=== PATIENT | male | born 1960 | race Caucasian/White ===

== ENCOUNTER 2016-06-08 17:06 | Inpatient (IN) ==
[2016-06-08] MEDS ORDERED: ONDANSETRON 4 MG/2 ML VIAL IV STA ×2 (17:18→19:14)
[2016-06-08] MEDS ORDERED: HYDROmorphone 2 MG/1 ML VIAL IV STA ×2 (17:18→19:14)
[2016-06-08] MEDS ORDERED: HYDROmorphone 2 MG/1 ML VIAL ONE ×2 (17:18→19:25)
[2016-06-08] MEDS ORDERED: ONDANSETRON 4 MG/2 ML VIAL ONE ×2 (17:18→19:24)
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
[2016-06-08 19:18] LABS: Basophils # 0.1 10*3/uL (0.0-0.2); Basophils % 0.4 % (0.0-0.8); Eosinophils # 0.2 10*3/uL (0.0-0.87); Eosinophils % 1.3 % (0.00-10.9); Hematocrit 43.9 VOL% (42.0-52.0); Hemoglobin 15.3 GM/DL (14.0-18.0); Immature Granulocytes % 0.7 %; Lymphocytes # 0.9 10*3/uL (1.4-4.0); Mean Corpuscular HGB Conc 34.9 GM/DL (32-36); Mean Corpuscular Hemoglobin 32 PG (27-34); Mean Corpuscular Volume 91.5 FL (87-102); Mean Platelet Volume 9.9 FL (9.6-12.0); Monocytes # 0.8 10*3/uL (0.11-0.8); Monocytes % 5.1 % (1.7-12.7); Neutrophils % 86.5 % (38.7-73.9); Platelet Count 218 T/CUMM (130-400); Red Cell Distribution Width 12.5 % (9.3-17.3); White Blood Count 15.1 T/CUMM (4-12)
[2016-06-08 19:30] LABS: PT Patient Result 10.7 SECS; Partial Thromboplastin Time 23.1 SECS (0-40)
[2016-06-08 19:31] LABS: Alanine Aminotransferase 71 U/L (16-61); Albumin 3.6 G/DL (3.4-5.0); Alkaline Phosphatase 84 U/L (45-117); Amylase 42 U/L (25-115); Aspartate Amino Transferase 81 U/L (0-37); Blood Urea Nitrogen 17 MG/DL (7-18); Calcium 8.3 MG/DL (8.5-10.1); Glucose 163 MG/DL (74-106); Osmolality,Calculated 282.5 MOS/KG (273-304); Sodium 139 MMOL/L (136-145); Total Protein 6.4 G/DL (6.4-8.3)
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
[2016-06-08] MEDS ORDERED: ONDANSETRON 4 MG/2 ML VIAL IV PRN (19:56)
[2016-06-08] MEDS ORDERED: HYDROmorphone 2 MG/1 ML VIAL IV PRN (19:56)
[2016-06-08] MEDS ORDERED: cefTRIAXone 1,000 MG in SODIUM CHLORIDE 0.9% 100 ML IV SCH (20:00)
[2016-06-09] MEDS: ALBUTEROL/IPRATROPIUM 3 ML NEB RESP TX SCH ×4 (01:11→19:28)
[2016-06-09] MEDS: HYDROmorphone 2 MG/1 ML VIAL IV PRN ×3 (05:03→14:38)
--- NOTE | 2016-06-09 07:09 | XRay Report ---
Referring Physician: Karthikeyan Zapata Exam: XR chest 1V portable Date: June 09, 2016 at 3:33 AM Reason: Follow-up pneumothorax Comparison: Chest one view portable June 08, 2016, CT chest June 08, 2016 Findings: The cardiac silhouette is again mildly enlarged. There are minimal scattered opacities within the mid and lower lung zones bilaterally, mainly on the right. This likely represents atelectasis and possibly pulmonary contusion. There are multiple recent right rib fractures as well as a displaced fracture of the right scapula. No significant pneumothorax is identified. Impression: There is slight increased atelectasis within both lungs. No significant pneumothorax is identified. PROCEDURE INTERPRETED AT [facility] DEPARTMENT OF RADIOLOGY Final Report Signed by: Dr. Jerry Lawler
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
[2016-06-09 07:54] LABS: Basophils % 0.5 % (0.0-0.8); Eosinophils # 0.2 10*3/uL (0.0-0.87); Eosinophils % 3.1 % (0.00-10.9); Hematocrit 45.4 VOL% (42.0-52.0); Hemoglobin 15.1 GM/DL (14.0-18.0); Immature Granulocytes % 0.5 %; Immature Granulocytes Absolute 0.04 #; Lymphocytes # 1.4 10*3/uL (1.4-4.0); Lymphocytes % 18.2 % (21.2-54.2); Mean Corpuscular HGB Conc 33.3 GM/DL (32-36); Mean Corpuscular Hemoglobin 32 PG (27-34); Mean Corpuscular Volume 96.2 FL (87-102); Mean Platelet Volume 9.4 FL (9.6-12.0); Monocytes # 0.5 10*3/uL (0.11-0.8); Monocytes % 6.4 % (1.7-12.7); Neutrophils # 5.3 10*3/uL (1.4-7.4); Neutrophils % 71.3 % (38.7-73.9); Platelet Count 209 T/CUMM (130-400); Red Blood Count 4.72 MC/CUMM (3.8-5.5); Red Cell Distribution Width 12.7 % (9.3-17.3); White Blood Count 7.5 T/CUMM (4-12)
[2016-06-09] MEDS: KETOROLAC 30 MG/1 ML VIAL IV SCH ×3 (08:20→21:04)
[2016-06-09] MEDS: ENOXAPARIN 40 MG/0.4 ML SYRINGE SUBCUT SCH (08:21)
[2016-06-09] MEDS: PANTOPRAZOLE 40 MG VIAL IV SCH (08:21)
[2016-06-09 08:24] LABS: Albumin 3.7 G/DL (3.4-5.0); Bilirubin,Total 1.2 MG/DL (0.2-1.0); Calcium 8.6 MG/DL (8.5-10.1); Osmolality,Calculated 280.5 MOS/KG (273-304); Potassium 4.2 MMOL/L (3.5-5.1); Total Protein 6.8 G/DL (6.4-8.3)
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
[2016-06-10] MEDS: KETOROLAC 30 MG/1 ML VIAL IV SCH ×4 (00:29→18:35)
[2016-06-10] MEDS: ALBUTEROL/IPRATROPIUM 3 ML NEB RESP TX SCH ×4 (00:40→19:58)
[2016-06-10] MEDS: HYDROmorphone 2 MG/1 ML VIAL IV PRN ×4 (00:40→21:20)
[2016-06-10] MEDS: ENOXAPARIN 40 MG/0.4 ML SYRINGE SUBCUT SCH (09:10)
[2016-06-10] MEDS: PANTOPRAZOLE 40 MG VIAL IV SCH (09:10)
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
[2016-06-10] MEDS ORDERED: oxyCODONE/ACETAMINOPHEN 5-325 MG TABLET PO PRN (10:59)
[2016-06-11] MEDS: ALBUTEROL/IPRATROPIUM 3 ML NEB RESP TX SCH ×4 (00:32→19:19)
[2016-06-11] MEDS: KETOROLAC 30 MG/1 ML VIAL IV SCH ×4 (02:22→18:42)
[2016-06-11] MEDS: HYDROmorphone 2 MG/1 ML VIAL IV PRN ×2 (06:44→10:30)
--- NOTE | 2016-06-11 07:48 | Orthopedic Progress Note ---
Orthopedics - Subjective Interval history: Pain control better using sling discussed. Follow-up 4 weeks/ no pain in wrist Exam - Constitutional Vitals: Period Temp Pulse Resp BP Sys/Collier Pulse Ox Last 24 Hr 97.6 F-99.2 F 70-92 18-20 105-120/50-68 90-99 Results - Labs CBC & BMP: 06/09/16 07:36 06/09/16 07:36
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
[2016-06-11] MEDS: oxyCODONE/ACETAMINOPHEN 5-325 MG TABLET PO SCH ×4 (09:38→21:14)
[2016-06-11] MEDS: PANTOPRAZOLE 40 MG VIAL IV SCH (09:39)
[2016-06-11] MEDS: ENOXAPARIN 40 MG/0.4 ML SYRINGE SUBCUT SCH (09:39)
[2016-06-12] MEDS: ALBUTEROL/IPRATROPIUM 3 ML NEB RESP TX SCH ×3 (00:02→14:08)
[2016-06-12] MEDS: oxyCODONE/ACETAMINOPHEN 5-325 MG TABLET PO SCH ×5 (02:02→17:20)
[2016-06-12] MEDS: KETOROLAC 30 MG/1 ML VIAL IV SCH ×3 (02:02→15:56)
[2016-06-12] MEDS: PANTOPRAZOLE 40 MG VIAL IV SCH (10:04)
[2016-06-12] MEDS: ENOXAPARIN 40 MG/0.4 ML SYRINGE SUBCUT SCH (10:04)
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
[2016-06-12 15:44] VITALS: BP 113/59
== END 2016-06-12 18:05 | disposition home or self-care (01) | DRG 563 ==
LOC: EDBD → EDUNIT# → N.ED 17:06 → N.EDINP 19:55 → N.CC 20:30 → N.3E 06-09 11:00
PROVIDERS: ADMIT Surgery; ATTEND Surgery

== ENCOUNTER 2020-11-18 14:04 | Observation (INO) ==
[2020-11-18 15:22] LABS: Basophils % 0.4 % (0.0-0.8); Eosinophils # 0.3 10*3/uL (0.0-0.87); Eosinophils % 3.6 % (0.00-10.9); Hematocrit 39.7 VOL% (42.0-52.0); Hemoglobin 13.4 GM/DL (14.0-18.0); Immature Granulocytes % 1.1 %; Immature Granulocytes Absolute 0.08 #; Lymphocytes # 1.5 10*3/uL (1.4-4.0); Lymphocytes % 21.1 % (21.2-54.2); Mean Corpuscular HGB Conc 33.8 GM/DL (32-36); Mean Corpuscular Volume 94.1 FL (87-102); Mean Platelet Volume 11.3 FL (9.6-12.0); Monocytes % 11.1 % (1.7-12.7); Neutrophils % 62.7 % (38.7-73.9); Platelet Count 199 T/CUMM (130-400); Red Blood Count 4.22 MC/CUMM (3.8-5.5); Red Cell Distribution Width 12.6 % (9.3-17.3); White Blood Count 7.3 T/CUMM (4-12)
[2020-11-18 15:45] LABS: Albumin 2.7 G/DL (3.4-5.0); Bilirubin,Total 0.5 MG/DL (0.20-1.00); Calcium 8.5 MG/DL (8.5-10.1); Osmolality,Calculated 290.7 MOS/KG (273-304); Potassium 4.6 MMOL/L (3.5-5.1); Total Protein 6.8 G/DL (6.4-8.2)
[2020-11-18] MEDS ORDERED: SODIUM CHLORIDE 0.9% 1,000 ML IV STA (15:58)
[2020-11-18] MEDS ORDERED: INSULIN REGULAR 100 UNIT/ML IV STA (15:58)
[2020-11-18 16:20] LABS: ABG Base Excess -0.9 MMOL/L (-2.5-2.5); ABG HCO3 23.6 MMOL/L (20-26); ABG Oxygen Saturation 94.4 % (95-100); ABG PCO2 37.2 MM HG (35-48); ABG PH 7.407 (7.35-7.45); ABG PO2 73.1 MM HG (80-95); ABG TCO2 20.3 MMOL/L (23-27)
[2020-11-18] MEDS ORDERED: ONDANSETRON 4 MG/2 ML VIAL IV PRN (16:42)
[2020-11-18] MEDS ORDERED: GLUCAGON 1 MG VIAL IM PRN (16:42)
[2020-11-18] MEDS ORDERED: DEXTROSE 50% 25 GM/50 ML VIAL IV PRN (16:42)
[2020-11-18] MEDS ORDERED: ACETAMINOPHEN 325 MG TABLET PO PRN (16:42)
[2020-11-18] MEDS ORDERED: ENOXAPARIN 40 MG/0.4 ML SYRINGE SUBCUT SCH (17:00)
[2020-11-18 17:23] LABS: Thyroid Stimulating Hormone 0.556 uIU/ml (0.358-3.74)
[2020-11-18] MEDS: INSULIN REGULAR 100 UNIT/ML SUBCUT SCH ×2 (20:52→21:21)
[2020-11-18] MEDS ORDERED: INSULIN GLARGINE 100 UNIT/ML SUBCUT SCH (21:00)
[2020-11-18] MEDS: metFORMIN 500 MG TABLET PO SCH (21:20)
[2020-11-18] MEDS: SODIUM CHLORIDE 0.9% 1,000 ML IV SCH (21:22)
[2020-11-18 22:30] LABS: Bilirubin,Urine Negative (Negative); Blood, Urine Negative (Negative); Glucose,Urine (UA) >=500 mg/dL (Negative); Ketones,Urine Negative (Negative); Nitrite,Urine Negative (Negative); Protein,Urine Negative; RBC,Urine 1 /HPF (0-4); Squamous Epithelial Cell,Urine Occasional /HPF (0-10); Urine Appearance CLEAR (Clear); Urine Color Straw (Yellow); Urine Specific Gravity 1.031 (1.001-1.035); Urine Urobilinogen < 2.0 EU/DL (0.2-1.0)
[2020-11-18] MEDS: ALBUTEROL/IPRATROPIUM 3 ML NEB RESP TX SCH (23:06)
[2020-11-19] MEDS: INSULIN REGULAR 100 UNIT/ML SUBCUT SCH ×2 (01:52→05:19)
[2020-11-19] MEDS: SODIUM CHLORIDE 0.9% 1,000 ML IV SCH (03:13)
[2020-11-19] MEDS: ALBUTEROL/IPRATROPIUM 3 ML NEB RESP TX SCH ×2 (03:48→07:35)
[2020-11-19 06:50] LABS: Basophils % 0.6 % (0.0-0.8); Eosinophils # 0.2 10*3/uL (0.0-0.87); Eosinophils % 3.4 % (0.00-10.9); Hematocrit 34.8 VOL% (42.0-52.0); Hemoglobin 11.8 GM/DL (14.0-18.0); Immature Granulocytes % 0.8 %; Immature Granulocytes Absolute 0.06 #; Lymphocytes # 1.5 10*3/uL (1.4-4.0); Lymphocytes % 21.3 % (21.2-54.2); Mean Corpuscular HGB Conc 33.9 GM/DL (32-36); Mean Corpuscular Volume 95.3 FL (87-102); Mean Platelet Volume 10.9 FL (9.6-12.0); Neutrophils % 61.9 % (38.7-73.9); Platelet Count 188 T/CUMM (130-400); Red Blood Count 3.65 MC/CUMM (3.8-5.5); Red Cell Distribution Width 12.7 % (9.3-17.3); White Blood Count 7.1 T/CUMM (4-12)
[2020-11-19 07:11] LABS: Albumin 2.3 G/DL (3.4-5.0); Bilirubin,Total 0.6 MG/DL (0.20-1.00); Calcium 7.7 MG/DL (8.5-10.1); Osmolality,Calculated 278.7 MOS/KG (273-304); Potassium 3.6 MMOL/L (3.5-5.1); Total Protein 5.4 G/DL (6.4-8.2)
[2020-11-19 07:51] VITALS: BP 106/64
[2020-11-19 07:51] LABS: Risk Ratio 2.7
[2020-11-19] MEDS: metFORMIN 500 MG TABLET PO SCH (08:02)
== END 2020-11-19 11:45 | disposition home or self-care (01) ==
LOC: N.ED 14:04 → N.EDINP 14:04 → N.3E 19:05
PROVIDERS: ADMIT Internal Medicine; ATTEND Internal Medicine